=== PATIENT | male | born 1990 | race African-American/Black ===

== ENCOUNTER 2017-06-21 04:10 | Emergency (ER) | payer MEDICAID ==
[~2017-06-21] VITALS: Ht 185.4 cm; Wt 71.8 kg
--- NOTE | 2017-06-21 04:10 | NUR ---
Patient was BIB [place] [employer]
[2017-06-21 04:22] VITALS: BP 129/97
[2017-06-21 05:20] VITALS: BP 122/75
--- NOTE | 2017-06-21 05:20 | NUR ---
Patient discharged with v/s stable. Written and verbal after care instructions given and explained. Patient verbalized understanding. Police with in custody. All questions addressed prior to discharge. Advised to follow up with [employer]D.
== END 2017-06-21 05:20 ==
LOC: MED 04:10
DX: Z02.89 Encounter for other administrative examinations (principal)
CPT/HCPCS: 99283